=== PATIENT | male | born 1990 | race Hispanic/Latino ===

== ENCOUNTER 2018-07-01 12:06 | Emergency (ER) | payer BC ==
[2018-07-01] MEDS ORDERED: NA CHLORIDE 0.9% 1,000 ML ONE (13:10)
--- NOTE | 2018-07-01 13:13 | RAD REPORT ---
EXAM DESCRIPTION: RAD - Chest Single View - 07/01/2018 1:08 pm CLINICAL HISTORY: COUGH Chest pain. COMPARISON: Chest Single View dated 05/22/2016 FINDINGS: Portable technique limits examination quality. The lungs are grossly clear. The heart is normal in size. No displaced fractures. IMPRESSION: No acute intrathoracic process suspected.
[2018-07-01 13:26] LABS: Absolute Monocytes 0.5 K/uL (0.1-1.3); Absolute Neutrophil 3.2 K/uL (1.8-8.0); Basophils % 0.4 % (0-1.3); Eosinophils % 0.6 % (0-4.4); Hematocrit 50.1 % (39.6-49.0); MPV 9.4 fL (7.6-11.3); Monocytes % 9.4 % (3.3-12.3); RBC Red Blood Cell Count 5.43 M/uL (4.33-5.43)
[2018-07-01 13:32] LABS: Protime INR 0.97
[2018-07-01 13:53] LABS: ALT/SGPT 197 U/L (12-78); AST/SGOT 90 U/L (15-37); Alkaline Phosphatase 47 U/L (45-117); BUN Blood Urea Nitrogen 12 mg/dL (7-18); Bicarbonate 26 mmol/L (21-32); Bilirubin Direct 0.2 mg/dL (0-0.2); Bilirubin Total 0.5 mg/dL (0.2-1.0); Glucose Level 60 mg/dL (74-106); Potassium 3.8 mmol/L (3.5-5.1); Sodium Level 142 mmol/L (136-145)
[2018-07-01 13:54] LABS: Albumin 3.8 g/dL (3.4-5.0); C-Reactive Protein < 2.90 mg/L (<3.00); Magnesium 2.2 mg/dL (1.8-2.4); NT PRO-BNP 13 pg/mL (<125); Protein, Total 7.2 g/dL (6.4-8.2); Troponin (Emerg Dept Use Only) < 0.02 ng/mL (0.0-0.045)
[2018-07-01 14:03] LABS: Barbiturates NEGATIVE (NEGATIVE); Benzodiazepines NEGATIVE (NEGATIVE); Cocaine NEGATIVE (NEGATIVE); METHAMPHETAM NEGATIVE (NEGATIVE); Methadone NEGATIVE (NEGATIVE); Opiates NEGATIVE (NEGATIVE); Phencyclidine NEGATIVE (NEGATIVE); THC Cannibis NEGATIVE (NEGATIVE)
--- NOTE | 2018-07-01 14:36 | RAD REPORT ---
EXAM DESCRIPTION: MRI - Brain Wo Cont - 07/01/2018 2:23 pm CLINICAL HISTORY: SLURRED SPEECH CVA, headache, drowsiness COMPARISON: No comparisons TECHNIQUE: Multi-sequence, multiplanar MR imaging of the brain was performed without contrast. FINDINGS: No intracranial hemorrhage, hydrocephalus or extra-axial fluid collections. No edema or sh ift of midline structures. No findings to suspect brain mass. DWI is negative for acute CVA. Midline structures are normally formed. Mild mucosal thickening is seen inferior right maxillary antrum. The paranasal sinuses and mastoids a re otherwise clear. IMPRESSION: No acute or concerning intracranial abnormalities.
--- NOTE | 2018-07-01 14:52 | EDPHYS ---
Physician Documentation [facility] Name: Ok Mauricio Age: 27 yrs Sex: Male : 1990 Arrival Date: 07/01/2018 Time: 12:12 Bed 18 Private MD: ED Physician Shun Conrad HPI: 07/01 12:43 This 27 yrs old Male presents to ER via EMS with complaints of Dizziness. rebekah 12:43 The patient presents with dizziness. Onset: The symptoms/episode began/occurred just rebekah prior to arrival, this morning. Context: occurred at work. Modifying factors: The symptoms are alleviated by nothing, the symptoms are aggravated by nothing. Associated signs and symptoms: The patient has no apparent associated signs or symptoms. Severity of symptoms: At their worst the symptoms were mild in the emergency department the symptoms are unchanged. Patient's baseline: Neuro:. The patient has not experienced similar symptoms in the past. Historical: - Allergies: 12:25 No Known Allergies; bp - Home Meds: 12:25 None [Active]; bp - PMHx: 12:25 testicular torsion; bp - Immunization history:: Adult Immunizations up to date. - Social history:: Smoking status: Patient/guardian denies using tobacco. - Ebola Screening: : Patient negative for fever greater than or equal to 101.5 degrees Fahrenheit, and additional compatible Ebola Virus Disease symptoms Patient denies exposure to infectious person Patient denies travel to an Ebola-affected area in the 21 days before illness onset No symptoms or risks identified at this time. - Family history:: not pertinent. ROS: 12:43 Constitutional: Negative for fever, chills, and weight loss, Eyes: Negative for injury, rebekah pain, redness, and discharge, ENT: Negative for injury, pain, and discharge, Neck: Negative for injury, pain, and swelling, Cardiovascular: Negative for chest pain, palpitations, and edema, Respiratory: Negative for shortness of breath, cough, wheezing, and pleuritic chest pain, Abdomen/GI: Negative for abdominal pain, nausea, vomiting, diarrhea, and constipation, Back: Negative for injury and pain, : Negative for injury, bleeding, discharge, and swelling, MS/Extremity: Negative for injury and deformity, Skin: Negative for injury, rash, and discoloration, Psych: Negative for depression, anxiety, suicide ideation, homicidal ideation, and hallucinations, Allergy/Immunology: Negative for hives, rash, and allergies, Endocrine: Negative for neck swelling, polydipsia, polyuria, polyphagia, and marked weight changes, Hematologic/Lymphatic: Negative for swollen nodes, abnormal bleeding, and unusual bruising. 12:43 Neuro: Positive for weakness. Exam: 12:46 Constitutional: This is a well developed, well nourished patient who is awake, alert, rebekah and in no acute distress. Head/Face: Normocephalic, atraumatic. Eyes: Pupils equal round and reactive to light, extra-ocular motions intact. Lids and lashes normal. Conjunctiva and sclera are non-icteric and not injected. Cornea within normal limits. Periorbital areas with no swelling, redness, or edema. ENT: Nares patent. No nasal discharge, no septal abnormalities noted. Tympanic membranes are normal and external auditory canals are clear. Oropharynx with no redness, swelling, or masses, exudates, or evidence of obstruction, uvula midline. Mucous membranes moist. Neck: Trachea midline, no thyromegaly or masses palpated, and no cervical lymphadenopathy. Supple, full range of motion without nuchal rigidity, or vertebral point tenderness. No Meningismus. Chest/axilla: Normal chest wall appearance and motion. Nontender with no deformity. No lesions are appreciated. Cardiovascular: Regular rate and rhythm with a normal S1 and S2. No gallops, murmurs, or rubs. Normal PMI, no JVD. No pulse deficits. Respiratory: Lungs have equal breath sounds bilaterally, clear to auscultation and percussion. No rales, rhonchi or wheezes noted. No increased work of breathing, no retractions or nasal flaring. Abdomen/GI: Soft, non-tender, with normal bowel sounds. No distension or tympany. No guarding or rebound. No evidence of tenderness throughout. Back: No spinal tenderness. No costovertebral tenderness. Full range of motion. Male : Normal genitalia with no discharge or lesions. Skin: Warm, dry with normal turgor. Normal color with no rashes, no lesions, and no evidence of cellulitis. MS/ Extremity: Pulses equal, no cyanosis. Neurovascular intact. Full, normal range of motion. Neuro: Awake and alert, GCS 15, oriented to person, place, time, and situation. Cranial nerves II-XII grossly intact. Motor strength 5/5 in all extremities. Sensory grossly intact. Cerebellar exam normal. Normal gait. Psych: Awake, alert, with orientation to person, place and time. Behavior, mood, and affect are within normal limits. Vital Signs: 12:27 BP 136 / 56; Pulse 57; Resp 14; Temp 98; Pulse Ox 100% ; Weight 104.33 kg; Height 6 ft. bp (182.88 cm); 13:17 BP 132 / 52; Pulse 57; Resp 14; Pulse Ox 99% ; bp 12:27 Body Mass Index 31.19 (104.33 kg, 182.88 cm) bp NIH Stroke Scale Scores: 13:34 NIHSS Score: 0 rebekah MDM: 12:13 Patient medically screened. [facility] 12:46 Data reviewed: vital signs, nurses notes, lab test result(s), EKG, radiologic studies, rebekah MRI. 07/01 12:42 Order name: Basic Metabolic Panel; Complete Time: 14:48 [facility] 07/01 12:42 Order name: CBC with Diff; Complete Time: 14:48 [facility] 07/01 12:42 Order name: LFT's; Complete Time: 14:48 [facility] 07/01 12:42 Order name: Magnesium; Complete Time: 14:48 [facility] 07/01 12:42 Order name: NT PRO-BNP; Complete Time: 14:48 [facility] 07/01 12:42 Order name: PT-INR; Complete Time: 14:48 [facility] 07/01 12:42 Order name: Troponin (emerg Dept Use Only); Complete Time: 14:48 [facility] 07/01 12:42 Order name: XRAY Chest (1 view); Complete Time: 14:48 [facility] 07/01 12:42 Order name: UDS; Complete Time: 14:48 [facility] 07/01 12:42 Order name: Sed Rate; Complete Time: 14:48 [facility] 07/01 12:42 Order name: CRP; Complete Time: 14:48 [facility] 07/01 13:56 Order name: Urine Dipstick--Ancillary (enter results) em1 07/01 14:11 Order name: Brain Wo Cont; Complete Time: 14:48 EDMS 07/01 12:42 Order name: EKG; Complete Time: 12:43 [facility] 07/01 12:42 Order name: Cardiac monitoring; Complete Time: 13:16 [facility] 07/01 12:42 Order name: EKG - Nurse/Tech; Complete Time: 13:16 [facility] 07/01 12:42 Order name: IV Saline Lock; Complete Time: 12:51 [facility] 07/01 12:42 Order name: Labs collected and sent; Complete Time: 12:51 [facility] 07/01 12:42 Order name: O2 Per Protocol; Complete Time: 12:51 [facility] 07/01 12:42 Order name: O2 Sat Monitoring; Complete Time: 12:51 [facility] 07/01 14:48 Order name: PO challenge: juice; Complete Time: 14:51 rebekah Administered Medications: 13:00 Drug: NS 0.9% 1000 ml Route: IV; Rate: 1 bolus; Site: left antecubital; bp 14:30 Follow up: IV Status: Completed infusion; IV Intake: 1000ml bp 15:00 Drug: Aspirin 162 mg Route: PO; bp 15:23 Follow up: Response: Medication administered at discharge. bp Disposition: 07/01/18 14:51 Discharged to Home. Impression: Dizziness and giddiness, Aphasia - resolved, Hypoglycemia, unspecified, Acute sinusitis. - Condition is Stable. - Discharge Instructions: Dizziness, Hypoglycemia, Sinusitis, Adult, Sinusitis, Adult, [id number], Blood Glucose Monitoring, Adult, Aspirin and Your Heart, Hypoglycemia, [id number], Dizziness, [id number]. - Prescriptions for Bactrim DS 800- 160 mg Oral Tablet - take 1 tablet by ORAL route every 12 hours for 10 days; 20 tablet. - Medication Reconciliation Form, Thank You Letter, Antibiotic Education, Prescription Opioid Use form. - Follow up: Private Physician; When: 2 - 3 days; Reason: Recheck today's complaints, Continuance of care, Re-evaluation by your physician. Follow up: Stone Guadalupe; When: 2 - 3 days; Reason: Recheck today's complaints, Re-evaluation by your physician. - Problem is new. - Symptoms have improved. NIH Stroke Scale - NIH Stroke Score Date: 07/01/2018 Time: 13:34 Total Score = 0 1a. Level of Consciousness (LOC) - 0(Alert) 1b. Level of Consciousness (LOC) (Year \T\ Age) - 0(Both) 1c. LOC Commands (Open \T\ Closes Eyes/Radiation Monitor) - 0(Both) 2. Best Gaze (Lateral Gaze Paresis) - 0(Normal) 3. Visual Field Loss - 0(No visual loss) 4. Facial Palsy - 0(Normal) 5a. Left Arm: Motor (10-second hold) - 0(No drift) 5b. Right Arm: Motor (10-second hold) - 0(No drift) 6a. Left Leg: Motor (5-second hold - always test supine) - 0(No drift) 6b. Right Leg: Motor (5-second hold - always test supine) - 0(No drift) 7. Limb Ataxia (finger/nose \T\ heel/arguello - test with eyes open) - 0(Absent) 8. Sensory Loss (pinprick arms/legs/face) - 0(Normal) 9. Best Language: Aphasia (description/naming/reading) - 0(No aphasia) 10. Dysarthria (speech clarity - read or repeat words) - 0(Normal) 11. Extinction and Inattention (visual/tactile/auditory/spatial/personal) - 0(No abnormality) Initials: [facility] Signatures: Dispatcher [employer] [facility] Shun Conrad MD MD cha Peltier, Brian, RN RN bp Corrections: (The following items were deleted from the chart) 14:11 12:43 MR STROKE PROTOCOL+MRI.RAD.SIMONE ordered. [facility] 14:52 14:51 07/01/2018 14:51 Discharged to Home. Impression: Dizziness and giddiness; rebekah Aphasia - resolved; Hypoglycemia, unspecified. Condition is Stable. Discharge Instructions: Dizziness, Aspirin and Your Heart, Dizziness, [id number]. Prescriptions for Meclizine 25 mg Oral Tablet - take 1 tablet by ORAL route every 8 hours As needed; 30 tablet. and Forms are Medication Reconciliation Form, Thank You Letter, Antibiotic Education, Prescription Opioid Use. Follow up: Private Physician; When: 2 - 3 days; Reason: Recheck today's complaints, Continuance of care, Re-evaluation by your physician. Follow up: Stone Guadalupe; When: 2 - 3 days; Reason: Recheck today's complaints, Re-evaluation by your physician. Problem is new. Symptoms have improved. [facility] 15:26 14:52 07/01/2018 14:51 Discharged to Home. Impression: Dizziness and giddiness; bp Aphasia - resolved; Hypoglycemia, unspecified; Acute sinusitis. Condition is Stable. Discharge Instructions: Dizziness, Aspirin and Your Heart, Dizziness, [id number], Hypoglycemia, Blood Glucose Monitoring, Adult, Hypoglycemia, [id number]. Forms are Medication Reconciliation Form, Thank You Letter, Antibiotic Education, Prescription Opioid Use. Follow up: Private Physician; When: 2 - 3 days; Reason: Recheck today's complaints, Continuance of care, Re-evaluation by your physician. Follow up: Stone Guadalupe; When: 2 - 3 days; Reason: Recheck today's complaints, Re-evaluation by your physician. Problem is new. Symptoms have improved. rebekah
--- NOTE | 2018-07-01 14:52 | ER ---
Nurse's Notes [facility] Name: Ok Mauricio Age: 27 yrs Sex: Male : 1990 Arrival Date: 07/01/2018 Time: 12:12 Bed 18 Private MD: Diagnosis: Dizziness and giddiness;Aphasia-resolved;Hypoglycemia, unspecified;Acute sinusitis Presentation: 07/01 12:13 Presenting complaint: EMS states: DIZZINESS x2 HOURS. Transition of care: patient was bp not received from another setting of care. Onset of symptoms was July 01, 2018 at 10:15. Risk Assessment: Do you want to hurt yourself or someone else? Patient reports no desire to harm self or others. Initial Sepsis Screen: Does the patient meet any 2 criteria? No. Patient's initial sepsis screen is negative. Does the patient have a suspected source of infection? No. Patient's initial sepsis screen is negative. Care prior to arrival: Medication(s) given: Normal saline infusion, 1000 mL, IV initiated. 18 GA, in the left antecubital area, Glucose check: 153. 12:13 Method Of Arrival: EMS: [email or web address] bp 12:13 Acuity: AMANDO 3 bp Triage Assessment: 12:25 General: Appears in no apparent distress. comfortable, Behavior is calm, cooperative, bp appropriate for age. Pain: Denies pain. EENT: No deficits noted. Neuro: Level of Consciousness is awake, alert, obeys commands, Oriented to person, place, time, situation, Appropriate for age Reports dizziness. Cardiovascular: Rhythm is sinus rhythm. Respiratory: Airway is patent Respiratory effort is even, unlabored, Respiratory pattern is regular, symmetrical. GI: No signs and/or symptoms were reported involving the gastrointestinal system. : No signs and/or symptoms were reported regarding the genitourinary system. Derm: No deficits noted. Musculoskeletal: Circulation, motion, and sensation intact. Range of motion: intact in all extremities. Historical: - Allergies: 12:25 No Known Allergies; bp - Home Meds: 12:25 None [Active]; bp - PMHx: 12:25 testicular torsion; bp - Immunization history:: Adult Immunizations up to date. - Social history:: Smoking status: Patient/guardian denies using tobacco. - Ebola Screening: : Patient negative for fever greater than or equal to 101.5 degrees Fahrenheit, and additional compatible Ebola Virus Disease symptoms Patient denies exposure to infectious person Patient denies travel to an Ebola-affected area in the 21 days before illness onset No symptoms or risks identified at this time. - Family history:: not pertinent. Screenin:28 Abuse screen: Denies threats or abuse. Denies injuries from another. Nutritional bp screening: No deficits noted. Tuberculosis screening: No symptoms or risk factors identified. Fall Risk None identified. Assessment: 12:15 General: SEE TRIAGE NOTE. bp 14:00 Reassessment: PT TO MRI. bp 15:20 Reassessment: PT D/C HOME AMBULATORY WITH FRIEND, DX WITH SINUSITIS AND HYPOGLYCEMIA. bp Vital Signs: 12:27 BP 136 / 56; Pulse 57; Resp 14; Temp 98; Pulse Ox 100% ; Weight 104.33 kg; Height 6 ft. bp (182.88 cm); 13:17 BP 132 / 52; Pulse 57; Resp 14; Pulse Ox 99% ; bp 12:27 Body Mass Index 31.19 (104.33 kg, 182.88 cm) bp NIH Stroke Scale Scores: 13:34 NIHSS Score: 0 rebekah ED Course: 12:12 Patient arrived in ED. bp 12:13 Shun Conrad MD is Attending Physician. rebekah 12:25 Triage completed. bp 12:27 Arm band placed on. bp 12:28 Patient has correct armband on for positive identification. Bed in low position. Call bp light in reach. Side rails up X2. 12:28 Maintain EMS IV. Dressing intact. Good blood return noted. Site clean \T\ dry. Gauge \T\ bp site: 18 GAUGE LEFT AC. 12:50 Nacho Moreno, MESERET is Primary Nurse. bp 13:06 X-ray completed. Portable x-ray completed in exam room. Patient tolerated procedure sw well. 13:08 XRAY Chest (1 view) In Process Unspecified. EDMS 13:09 EKG done, by emergency department technician. reviewed by Shun Conrad MD. at1 13:51 Urine collected: clean catch specimen, clear. mh5 13:51 UDS Sent. mh5 13:52 Pulse ox on. NIBP on. mh5 14:06 Patient moved to MRI via wheelchair. em2 14:16 Brain Wo Cont In Process Unspecified. EDMS 14:50 Stone Guadalupe MD is Referral Physician. rebekah 15:21 No provider procedures requiring assistance completed. IV discontinued, intact, bp bleeding controlled, No redness/swelling at site. Pressure dressing applied. Administered Medications: 13:00 Drug: NS 0.9% 1000 ml Route: IV; Rate: 1 bolus; Site: left antecubital; bp 14:30 Follow up: IV Status: Completed infusion; IV Intake: 1000ml bp 15:00 Drug: Aspirin 162 mg Route: PO; bp 15:23 Follow up: Response: Medication administered at discharge. bp Intake: 14:30 IV: 1000ml; Total: 1000ml. bp Outcome: 14:51 Discharge ordered by MD. rebekah 15:21 Discharged to home ambulatory, with friend. bp 15:21 Condition: stable 15:21 Discharge instructions given to patient, Instructed on discharge instructions, follow up and referral plans. medication usage, Demonstrated understanding of instructions, follow-up care, medications, Prescriptions given X 1. 15:26 Patient left the ED. bp NIH Stroke Scale - NIH Stroke Score Date: 07/01/2018 Time: 13:34 Total Score = 0 1a. Level of Consciousness (LOC) - 0(Alert) 1b. Level of Consciousness (LOC) (Year \T\ Age) - 0(Both) 1c. LOC Commands (Open \T\ Closes Eyes/Bacon Skinner) - 0(Both) 2. Best Gaze (Lateral Gaze Paresis) - 0(Normal) 3. Visual Field Loss - 0(No visual loss) 4. Facial Palsy - 0(Normal) 5a. Left Arm: Motor (10-second hold) - 0(No drift) 5b. Right Arm: Motor (10-second hold) - 0(No drift) 6a. Left Leg: Motor (5-second hold - always test supine) - 0(No drift) 6b. Right Leg: Motor (5-second hold - always test supine) - 0(No drift) 7. Limb Ataxia (finger/nose \T\ heel/arguello - test with eyes open) - 0(Absent) 8. Sensory Loss (pinprick arms/legs/face) - 0(Normal) 9. Best Language: Aphasia (description/naming/reading) - 0(No aphasia) 10. Dysarthria (speech clarity - read or repeat words) - 0(Normal) 11. Extinction and Inattention (visual/tactile/auditory/spatial/personal) - 0(No abnormality) Initials: rebekah Signatures: Dispatcher [employer] Shun Milton MD MD cha Montes, Enrique em2 Lona Herbert, survey and mapping technician EKG [facility]1 Miriam Sheikh Maria 5 Nacho Moreno, RN RN bp
[2018-07-01] MEDS ORDERED: ASPIRIN EC 81 MG TAB PO ONE (15:26)
[2018-07-01 16:34] LABS: Urine Blood NEGATIVE (NEG); Urine Glucose NEGATIVE (NEG); Urine Protein NEGATIVE (NEG); Urine pH 7.5 (5.0-7.0)
--- NOTE | 2018-07-02 06:24 | EKG ---
Test Date: 2018-07-01 Test Time: 12:55:36 Manager Diesel: ZEINA MEASUREMENT RESULTS: Intervals: Rate: 54 RI: 164 QRSD: 98 QT: 394 QTc: 373 [place]: P: 50 RI: 164 QRS: 80 T: 21 INTERPRETIVE STATEMENTS: Sinus bradycardia with sinus arrhythmia Otherwise normal ECG Compared to ECG 05/22/2016 14:53:51 Sinus rhythm no longer present Electronically Signed On 07-02-18 06:14:37 PACKING ROOM INSPECTOR by Meño Cortes
== END 2018-07-01 15:26 | disposition home or self-care (01) ==
LOC: ER 12:06
DX: E16.2 Hypoglycemia, unspecified (principal); J01.90 Acute sinusitis, unspecified
CPT/HCPCS: 36415; 70551; 71045; 80048; 80076; 80307; 81003; 83735; 83880; 84484; 85025; 85610; 85652; 86140; 93005; 96360; 99285; J7030

== ENCOUNTER 2020-10-19 09:38 | Emergency (ER) | payer BC, OTHER, SELFPAY ==
--- NOTE | 2020-10-19 10:53 | RAD REPORT ---
EXAM DESCRIPTION: CT - Spine Lumbar Wo Con - 10/19/2020 10:40 am CLINICAL HISTORY: Radiculopathy. PAIN COMPARISON: No comparisons TECHNIQUE: Axial noncontrast CT imaging of the lumbar spine was performed with coronal and sagittal re-formatted images. All CT scans are performed using dose optimization technique as appropriate and may include automated exposure control or mA/KV adjustment according to patient size. FINDINGS: No acute lumbar spine fracture seen. No aggressive marrow pattern or malalignment. Paraspinal tissues are normal in thickness. No paraspinal abscess or hematoma seen. Intervertebral disc disease assessment is inherently limited by CT. Within these limitations, no high -grade canal stenosis suspected. IMPRESSION: No acute lumbar spine abnormality. Consider MRI follow-up for assessment of disc disease if clinically desired.
[2020-10-19] MEDS ORDERED: CYCLOBENZAPRINE 10 MG TAB ONE (11:28)
[2020-10-19] MEDS ORDERED: MORPHINE 4 MG/ML SYR ONE (11:29)
[2020-10-19] MEDS ORDERED: ONDANSETRON 4 MG/2 ML VIAL ONE (11:29)
[2020-10-19] MEDS ORDERED: KETOROLAC 30 MG/ML INJ ONE (11:29)
--- NOTE | 2020-10-19 11:59 | EDPHYS ---
Physician Documentation [facility] Name: Ok Mauricio Age: 29 yrs Sex: Male : 1990 Arrival Date: 10/19/2020 Time: 09:39 Bed 8 Private MD: JONAH Physician Shun Conrad HPI: 10/19 20:15 This 29 yrs old Male presents to ER via Wheelchair with complaints of Back kb Pain, Back Injury. 20:15 The patient presents with pain that is acute. The symptoms are located in the low back. kb Onset: The symptoms/episode began/occurred yesterday. The pain does not radiate. Associated signs and symptoms: The patient has no apparent associated signs or symptoms. The problem was sustained when lifting heavy object. Modifying factors: The patient symptoms are alleviated by nothing, the patient symptoms are aggravated by any movement. Severity of symptoms: At their worst the symptoms were moderate, in the emergency department the symptoms are unchanged. The patient has not experienced similar symptoms in the past. The patient has not recently seen a physician. Pt reports pain to low back that started yesterday while lifting weights at the gym. States the pain has been getting worse and now it is difficult to walk due to pain. No urinary or bowel issues. No numbness or tingling. Historical: - Allergies: 09:50 No Known Allergies; hb - Home Meds: 09:50 None [Active]; hb - PMHx: 09:50 testicular torsion; hb - PSHx: 09:50 Testicular torsion w/ removal; hb - Immunization history:: Adult Immunizations up to date. - Social history:: Smoking status: Patient reports the use of cigarette tobacco products, denies chronic smoking, but will smoke occasionally. ROS: 20:14 Constitutional: Negative for fever, chills, and weight loss, Cardiovascular: Negative kb for chest pain, palpitations, and edema, Respiratory: Negative for shortness of breath, cough, wheezing, and pleuritic chest pain, Abdomen/GI: Negative for abdominal pain, nausea, vomiting, diarrhea, and constipation, : Negative for injury, bleeding, discharge, and swelling, MS/Extremity: Negative for injury and deformity, Skin: Negative for injury, rash, and discoloration, Neuro: Negative for headache, weakness, numbness, tingling, and seizure. 20:14 Back: Positive for pain at rest, pain with movement, of the low back area. Exam: 20:14 Constitutional: This is a well developed, well nourished patient who is awake, alert, kb and in no acute distress. Head/Face: Normocephalic, atraumatic. Cardiovascular: Regular rate and rhythm with a normal S1 and S2. No gallops, murmurs, or rubs. No pulse deficits. Respiratory: Respirations even and unlabored. No increased work of breathing, no retractions or nasal flaring. Abdomen/GI: Soft, non-tender. No distention Skin: Warm, dry with normal turgor. Normal color. MS/ Extremity: Pulses equal, no cyanosis. Neurovascular intact. Full, normal range of motion. Neuro: Awake and alert, GCS 15, oriented to person, place, time, and situation. Moves all extremities. Normal gait. 20:14 Back: pain, that is moderate, of the low back area, ROM is painful, with all movement, Straight leg raises: pain bilaterally. 20:16 Neuro: Exam negative for acute changes. kb Vital Signs: 09:47 BP 171 / 65; Pulse 73; Resp 16; Temp 97.5; Pulse Ox 100% on R/A; Weight 97.52 kg; hb Height 6 ft. (182.88 cm); Pain 10/10; 12:09 BP 165 / 71; Pulse 75; Resp 17; Temp 97.5; Pulse Ox 100% ; bp 09:47 Body Mass Index 29.16 (97.52 kg, 182.88 cm) hb MDM: 10:22 Patient medically screened. kb 20:14 Data reviewed: vital signs, nurses notes. Data interpreted: Pulse oximetry: on room air kb is 100 %. Interpretation: normal. Counseling: I had a detailed discussion with the patient and/or guardian regarding: the historical points, exam findings, and any diagnostic results supporting the discharge/admit diagnosis, radiology results, the need for outpatient follow up, a family practitioner, to return to the emergency department if symptoms worsen or persist or if there are any questions or concerns that arise at home. 10/19 10:29 Order name: CT Lumbar Spine Wo Con; Complete Time: 10:54 kb 10/19 10: Order name: IV Start; Complete Time: 11:19 kb Administered Medications: 11:19 Drug: morphine 4 mg Route: IVP; Site: right antecubital; kb 11:47 Follow up: Response: No adverse reaction; Pain is unchanged, physician notified; RASS: tw2 Alert and Calm (0) 11:19 Drug: Zofran (Ondansetron) 4 mg Route: IVP; Site: right antecubital; kb 11:47 Follow up: Response: No adverse reaction tw2 11:19 Drug: Flexeril (cyclobenzaprine) 10 mg Route: PO; kb 11:47 Follow up: Response: No adverse reaction tw2 11:19 Drug: TORadol - (ketorolac) 15 mg Route: IVP; Site: right antecubital; kb 11:47 Follow up: Response: No adverse reaction; Pain is unchanged, physician notified; tw2 physician at bedside 11:45 Drug: Lidoderm 5 % (700 mg/patch) 1 patches Route: Topical; Site: affected area; tw2 12:05 Drug: [place] (HYDROcodone-acetaminophen) 10 mg-325 mg 1 tabs Route: PO; bp 12:20 Follow up: Response: Pain is decreased bp Disposition: 10/20 08:03 Co-signature as Attending Physician, Shun Conrad MD I agree with the assessment and rebekah plan of care. Disposition: 10/19/20 11:58 Discharged to Home. Impression: Low back pain. - Condition is Stable. - Discharge Instructions: Musculoskeletal Pain, Back Injury Prevention, [id number], Back Pain, Adult, [id number]. - Prescriptions for Cyclobenzaprine 10 mg Oral Tablet - take 1 tablet by ORAL route every 8 hours As needed; 21 tablet. Diclofenac Sodium 75 mg Oral Tablet, Delayed Release (E.C.) - take 1 tablet by ORAL route 2 times per day As needed; 30 tablet. Tramadol 50 mg Oral Tablet - take 1 tablet by ORAL route every 8 hours as needed; 12 tablet. - Medication Reconciliation Form, Thank You Letter, Antibiotic Education, Prescription Opioid Use, Work release form form. - Follow up: Private Physician; When: 2 - 3 days; Reason: Recheck today's complaints, Continuance of care, Re-evaluation by your physician. Follow up: Emergency Department; When: As needed; Reason: Worsening of condition. Signatures: Dispatcher [employer] Silva Beckham FNP-C FNP-Shun Cruz MD MD cha Baxter, Heather, RN RN Stacia Olvera, RN RN tw2 Nacho Moreno, RN RN bp Corrections: (The following items were deleted from the chart) 10/19 12:20 11:58 10/19/2020 11:58 Discharged to Home. Impression: Low back pain. Condition is bp Stable. Forms are Work release form, Medication Reconciliation Form, Thank You Letter, Antibiotic Education, Prescription Opioid Use. Follow up: Private Physician; When: 2 - 3 days; Reason: Recheck today's complaints, Continuance of care, Re-evaluation by your physician. Follow up: Emergency Department; When: As needed; Reason: Worsening of condition. kb 20:16 20:15 Pt reports pain to low back that started yesterday while lifting weights at the [employer]. States the pain has been getting worse and now it is difficult to walk due to pain. No urinary or bowel issues. . kb
--- NOTE | 2020-10-19 11:59 | ER ---
Nurse's Notes [facility] Name: Ok Mauricio Age: 29 yrs Sex: Male : 1990 Arrival Date: 10/19/2020 Time: 09:39 Bed 8 Private MD: Diagnosis: Low back pain Presentation: 10/19 09:47 Chief complaint: Low back pain after lifting weight yesterday, unable to stand up hb straight or walk unassisted. Coronavirus screen: At this time, the client does not indicate any symptoms associated with coronavirus-19. Ebola Screen: No symptoms or risks identified at this time. Initial Sepsis Screen: Does the patient meet any 2 criteria? No. Patient's initial sepsis screen is negative. Does the patient have a suspected source of infection? No. Patient's initial sepsis screen is negative. Risk Assessment: Do you want to hurt yourself or someone else? Patient reports no desire to harm self or others. Onset of symptoms was October 18, 2020. 09:47 Method Of Arrival: Wheelchair 09:47 Acuity: AMANDO 3 hb Triage Assessment: 10:10 General: Appears in no apparent distress. uncomfortable, Behavior is cooperative, bp appropriate for age, anxious. Pain: Complains of pain in back. EENT: No deficits noted. Neuro: Level of Consciousness is awake, alert, obeys commands, Oriented to Appropriate for age. Cardiovascular: No deficits noted. Respiratory: No deficits noted. GI: No signs and/or symptoms were reported involving the gastrointestinal system. : No signs and/or symptoms were reported regarding the genitourinary system. Derm: No deficits noted. Musculoskeletal: Circulation, motion, and sensation intact. Range of motion: intact in all extremities. Historical: - Allergies: 09:50 No Known Allergies; hb - Home Meds: 09:50 None [Active]; hb - PMHx: 09:50 testicular torsion; hb - PSHx: 09:50 Testicular torsion w/ removal; hb - Immunization history:: Adult Immunizations up to date. - Social history:: Smoking status: Patient reports the use of cigarette tobacco products, denies chronic smoking, but will smoke occasionally. Screenin:40 Abuse screen: Denies threats or abuse. Nutritional screening: No deficits noted. tw2 Tuberculosis screening: No symptoms or risk factors identified. Fall Risk None identified. Assessment: 10:10 General: SEE TRIAGE NOTE. bp 11:00 Reassessment: No changes from previously documented assessment. Patient and/or family bp updated on plan of care and expected duration. Pain level reassessed. Patient is alert, oriented x 3, equal unlabored respirations, skin warm/dry/pink. 12:07 Reassessment: PT D/C HOME VIA W/C, DX WITH LUMBAR PAIN. bp 12:07 Neuro: Level of Consciousness is awake, alert, obeys commands, Oriented to Appropriate bp for age Moves all extremities. Vital Signs: 09:47 BP 171 / 65; Pulse 73; Resp 16; Temp 97.5; Pulse Ox 100% on R/A; Weight 97.52 kg; hb Height 6 ft. (182.88 cm); Pain 1010; 12:09 BP 165 / 71; Pulse 75; Resp 17; Temp 97.5; Pulse Ox 100% ; bp 09:47 Body Mass Index 29.16 (97.52 kg, 182.88 cm) hb ED Course: 09:39 Patient arrived in ED. am2 09:49 Triage completed. hb 09:50 Arm band placed on. hb 10:20 Bed in low position. Call light in reach. Pulse ox on. NIBP on. tw2 10:21 [facility]. kb 10:21 Shun Conrad MD is Attending Physician. kb 10:40 CT Lumbar Spine Wo Con In Process Unspecified. EDMS 10:53 Nacho Moreno, RN is Primary Nurse. bp 11:05 Inserted saline lock: 20 gauge in right antecubital area, using aseptic technique. bp 11:40 Primary Nurse role handed off by Nacho Moreno, RN tw2 11:40 Stacia Olvera, MESERET is Primary Nurse. tw2 12:07 No provider procedures requiring assistance completed. IV discontinued, intact, bp bleeding controlled, No redness/swelling at site. Pressure dressing applied. Administered Medications: 11:19 Drug: morphine 4 mg Route: IVP; Site: right antecubital; kb 11:47 Follow up: Response: No adverse reaction; Pain is unchanged, physician notified; RASS: tw2 Alert and Calm (0) 11:19 Drug: Zofran (Ondansetron) 4 mg Route: IVP; Site: right antecubital; kb 11:47 Follow up: Response: No adverse reaction tw2 11:19 Drug: Flexeril (cyclobenzaprine) 10 mg Route: PO; kb 11:47 Follow up: Response: No adverse reaction tw2 11:19 Drug: TORadol - (ketorolac) 15 mg Route: IVP; Site: right antecubital; kb 11:47 Follow up: Response: No adverse reaction; Pain is unchanged, physician notified; tw2 physician at bedside 11:45 Drug: Lidoderm 5 % (700 mg/patch) 1 patches Route: Topical; Site: affected area; tw2 12:05 Drug: [place] (HYDROcodone-acetaminophen) 10 mg-325 mg 1 tabs Route: PO; bp 12:20 Follow up: Response: Pain is decreased bp Intake: Outcome: 11:58 Discharge ordered by MD. kb 12:07 Discharged to home via wheelchair, with family. bp 12:07 Condition: stable 12:07 Discharge instructions given to patient, Instructed on discharge instructions, follow up and referral plans. medication usage, Demonstrated understanding of instructions, follow-up care, medications, Prescriptions given X 3. 12:20 Patient left the ED. bp Signatures: Dispatcher [employer] EDMS Silva Moore, ALFRED PACHECOP-Vianey Gutierrez RN RN Stacia Olvera RN RN tw2 Lona Moore am2 Nacho Moreno RN RN bp Corrections: (The following items were deleted from the chart) 12:07 12:06 Reassessment: bp bp
[2020-10-19] MEDS ORDERED: LIDOCAINE 4% PATCH ONE (12:01)
[2020-10-19 12:28] VITALS: TEMP 97.5; O2SAT 100
[2020-10-19] MEDS ORDERED: HYDROCODONE/APAP 10/325 TAB ONE (12:29)
[2020-10-19 12:30] VITALS: BP 165/71
== END 2020-10-19 12:20 | disposition home or self-care (01) ==
LOC: ER 09:38
DX: M54.5 Low back pain (principal); F17.210 Nicotine dependence, cigarettes, uncomplicated
CPT/HCPCS: 72131; 96374; 96375; 99284; J2405